=== PATIENT | male | born 1970 | race Hispanic/Latino ===

== ENCOUNTER 2018-01-08 19:42 | Emergency (ER) | payer SELFPAY ==
[~2018-01-08] VITALS: Ht 162.6 cm; Wt 63.5 kg
[2018-01-08 20:36] LABS: ABSOLUTE BASOPHIL COUNT 0 /CUMM (0.0-0.2); ABSOLUTE EOSINOPHIL COUNT 0 /CUMM (0.0-0.7); ABSOLUTE GRANULOCYTE CT 3.8 /CUMM (1.4-6.5); ABSOLUTE LYMPH COUNT 1.4 /CUMM (1.2-3.4); ABSOLUTE MONOCYTE COUNT 0.5 /CUMM (0.10-0.60); BASOPHIL % 0.7 % (0.0-2.0); EOSINOPHIL % 0.2 % (0-5); GRANULOCYTE % 65.5 % (42.2-75.2); MEAN CORPUSCULAR HGB 30.6 PG (27.0-31.0); MEAN CORPUSCULAR HGB CONC 34.1 G/DL (33.0-37.0); MEAN CORPUSCULAR VOLUME 89.8 FL (80.0-94.0); MEAN PLATELET VOLUME 6.6 FL (7.4-10.4); PLATELET COUNT 410 /CUMM (130-400); RBC DISTRIBUTION WIDTH 12.9 % (11.5-14.5); RED BLOOD CELL CT 5.35 /CUMM (4.70-6.10); WHITE BLOOD CELL COUNT 5.7 /CUMM (4.8-10.8)
[2018-01-08 21:38] VITALS: BP 112/80
--- NOTE | 2018-01-08 21:44 | ED GENERAL ADULT ---
History of Present Illness General Chief Complaint: General Adult Stated Complaint: PT IS HAVING NECK CRAMPING Source: patient Exam Limitations: no limitations Vital Signs & Intake/Output Vital Signs & Intake/Output Vital Signs Date Time Temp Pulse Resp B/P B/P Pulse O2 O2 Flow FiO2 Mean Ox Delivery Rate 01/08 2138 Room Air 01/08 2138 97.8 93 16 112/80 97 Room Air 01/08 1947 96.8 113 20 152/98 97 Room Air ED Intake and Output 01/09 0000 01/08 1200 Intake Total Output Total Balance Patient 140 lb Weight Weight Reported by Patient Measurement Method Allergies Coded Allergies: No Known Allergies (01/08/18) Triage Note: PT FROM HOME C/O OF NECK CRAMPING/RADIATING TO WHOLE BODY CRAMPS PER PT X1 HR. PT DENIES ANY INJURY OR TRAUMA. PTS BP ELEVATED 152/98. PT STATES "IM NOT BEING A BABY BUT I REALLY NEED TO SEE SOMEONE IMMEDIATELY" PT PROVIDED WITH AN ICE PACK IN TRIAGE. AWAITING LAUREEN GUERRIER TO SEE PT. PT IN TRIAGE DRINKING MILK. Triage Nurses Notes Reviewed? yes Onset: Abrupt Duration: day(s): (1), constant, continues in ED, getting worse Timing: single episode today Injury Environment: home Severity: moderate, severe Severity Numbers: 7 No Modifying Factors: none HPI: 47-year-old male with no medical history presents for evaluation of right-sided neck pain. Patient reports symptoms started about one hour prior to arrival. There is no trauma or triggering event. Patient reports it feels like there is a spasm or a knot in his neck. The pain is worse with movement. He reports it improves when he massages the area. He denies any swelling redness fever or difficulty swallowing breathing chest pain or cough. Patient does admit to using methamphetamine several days ago. No numbness or tingling. Past History Travel History Traveled to [place] past 21 day No Medical History Any Pertinent Medical History? see below for history Neurological: NONE EENT: NONE Cardiovascular: NONE Respiratory: NONE Gastrointestinal: NONE Hepatic: NONE Renal: NONE Musculoskeletal: NONE Psychiatric: NONE Endocrine: NONE Surgical History Surgical History: non-contributory Psychosocial History What is your primary language [place] Tobacco Use: Quit >30 days ago Family History Hx Contributory? No Review of Systems Review of Systems Constitutional: Reports: no symptoms. EENTM: Reports: no symptoms. Respiratory: Reports: no symptoms. Cardiovascular: Reports: no symptoms. GI: Reports: no symptoms. Genitourinary: Reports: no symptoms. Musculoskeletal: Reports: see HPI, muscle pain, muscle stiffness, neck pain. Skin: Reports: no symptoms. Neurological/Psychological: Reports: no symptoms. Hematologic/Endocrine: Reports: no symptoms. Immunologic/Allergic: Reports: no symptoms. All Other Systems: Reviewed and Negative Physical Exam Physical Exam General Appearance: well developed/nourished, no apparent distress, alert, awake Head: atraumatic, normal appearance Eyes: Bilateral: normal appearance, PERRL, EOMI. Ears, Nose, Throat: normal pharynx, normal ENT inspection, hearing grossly normal Neck: normal inspection, supple, limited range of motion, tender lateral, no midline tenderness, there is sinus palpation of the right trapezius and right cervical paraspinal muscles. No bruising swelling or abrasions range of motion is limited due to pain. Midline tenderness no step-offs or deformities Respiratory: normal breath sounds, chest non-tender, no respiratory distress, lungs clear Cardiovascular: regular rate/rhythm, normal peripheral pulses Peripheral Pulses: 2+ radial (R), 2+ radial (L) Back: normal inspection, normal range of motion Extremities: normal inspection, normal range of motion, no edema Neurologic/Psych: no motor/sensory deficits, awake, alert, oriented x 3, normal gait, normal mood/affect Skin: intact, normal color, warm/dry Core Measures ACS in differential dx? No CVA/TIA Diagnosis: No Sepsis Present: No Sepsis Focused Exam Completed? No Progress Differential Diagnoses I considered the following diagnoses in my evaluation of the patient: [ Torticollis/cervical strain, cervical radiculopathy, fracture, herniated disc] Plan of Care: Orders Procedure Date/time Status TROPONIN LEVEL 01/08 1953 Complete MAGNESIUM 01/08 1953 Complete ETHANOL 01/08 1953 Complete COMPREHENSIVE METABOLIC PANEL 01/08 1953 Complete CREATINE PHOSPHOKINASE 01/08 1953 Complete CBC WITHOUT DIFFERENTIAL 01/08 1953 Complete EKG 01/08 1953 Active Laboratory Tests 01/08/18 2016: Anion Gap 11, Estimated GFR 59 L, BUN/Creatinine Ratio 17.7, Glucose 104 H, Calcium 10.3 H, Magnesium 2.2, Total Bilirubin 2.4 H, AST 28, ALT 32, Alkaline Phosphatase 53, Creatine Kinase 264 H, Troponin I < 0.01, Total Protein 8.5 H, Albumin 5.4 H, Globulin 3.1, Albumin/Globulin Ratio 1.7, CBC w Diff NO MAN DIFF REQ, RBC 5.35, MCV 89.8, MCH 30.6, MCHC 34.1, RDW 12.9, MPV 6.6 L, Gran % 65.5, Lymphocytes % 24.8, Monocytes % 8.8, Eosinophils % 0.2, Basophils % 0.7, Absolute Granulocytes 3.8, Absolute Lymphocytes 1.4, Absolute Monocytes 0.5, Absolute Eosinophils 0, Absolute Basophils 0, Serum Alcohol < 10.0 01/08/181952: Methadone Screen Cancelled, Barbiturate Screen Cancelled, Ur Phencyclidine Scrn Cancelled, Amphetamines Screen Cancelled, U Benzodiazepines Scrn Cancelled, Urine Cocaine Screen Cancelled, Urine Cannabis Screen Cancelled pt is here for evaluation of right-sided neck pain. Pain started about 1 hour prior to arrival. He does admit to using methamphetamines. Pain is reproducible with range of motion and palpation it is improved with rubbing and massaging the area. Patient was medicated with ibuprofen. Labs were obtained and show a mildly elevated BUN and creatinine. Patient also has 18 bili of 2.4. Review these results with patient. He reports he has a previous history of elevated bilirubin that was followed by his doctor when he lived in [place] he recently moved here. Patient does not appear jaundiced he has no abdominal pain or fevers. He was instructed to increase fluids and follow-up with a primary care doctor for retesting. Patient was given a pamphlet of primary care doctors in the area. Patient declined a prescription for any medications advised continuing Tylenol and reported as needed for pain and apply warm compresses. Patient declined to give a urine sample for urine drug screen. He does appear to be clinically sober. Discussed return cautions in detail patient agrees the plan Initial ED EKG: normal sinus rhythm, no ST T wave changes Departure Departure Disposition: HOME OR SELF CARE Condition: Stable Clinical Impression Primary Impression: Torticollis, acute Referrals: Patient Has No Primary Care Dr (PCP/Family) Additional Instructions: Rest avoid heavy lifting bending or excessive physical activity. Continue Tylenol and ibuprofen for pain. Apply ice/heat to your neck. Make a follow-up with 1 of the provided primary care doctors to review all results of today's visit. She need further evaluation of your elevated bilirubin and elevated kidney function test. Drink plenty of fluids. Monitor your symptoms return with any concerns. Departure Forms: Customer Survey General Discharge Information Critical Care Note Critical Care Note Critical Care Time: non-applicable
== END 2018-01-08 22:08 ==
LOC: ERH 19:42
PROVIDERS: Physician Assistant Medical
DX: M43.6 Torticollis (principal); Z87.891 Personal history of nicotine dependence; F15.10 Other stimulant abuse, uncomplicated
CPT/HCPCS: 80307; 93005; 93010; G0480